=== PATIENT | female | born 1995 | race African-American/Black ===

== ENCOUNTER 2018-11-23 16:06 | Emergency (ER) | payer BC, OTHER ==
[~2018-11-23] VITALS: Ht 170.2 cm; Wt 75.0 kg
[2018-11-23] MEDS ORDERED: SODIUM CHLORIDE 0.9% 1,000 ML IV ONE (18:47)
[2018-11-23] MEDS ORDERED: ONDANSETRON HCL 4MG/2ML INJ IV STA (18:47)
[2018-11-23 19:39] LABS: CHLORIDE 100 mEq/L (98-107)
[2018-11-23 19:40] LABS: BASOPHILS % 0.6 % (0.0-2.0); EOSINOPHILS % 1.3 % (0.0-5.0); HEMATOCRIT. 41.5 % (36.0-48.0); HEMOGLOBIN. 13.9 g/dL (12.0-16.0); LYMPHOCYTES % 28.6 % (20.0-50.0); MEAN CORPUSCULAR HEMOGLOBIN 31.7 pg (28.0-32.0); MEAN CORPUSCULAR VOLUME 94.7 fL (81.0-99.0); MEAN PLATELET VOLUME 8.9 fl (7.4-10.4); MONOCYTES % 5.9 % (2.0-8.0); NEUTROPHILS % 63.6 % (40.0-76.0); PLATELET 340 x1000/uL (130-400); RED BLOOD CELL COUNT 4.38 mill/uL (4.2-5.4); RED CELL DISTRIBUTION WIDTH 13.5 % (11.6-14.6)
[2018-11-23] MEDS ORDERED: INSULIN LISPRO 100 UNITS/ML SUBCUT ONE (20:30)
[2018-11-23 20:45] VITALS: BP 118/75
== END 2018-11-23 20:52 | disposition home or self-care (01) ==
LOC: ER 16:06
DX: E11.65 Type 2 diabetes mellitus with hyperglycemia (principal)
CPT/HCPCS: 36415; 80053; 82962; 83880; 84484; 85025; 93005; 96360; 96372; 99284; J1815; J2405; J7030